=== PATIENT | female | born 1990 | race Caucasian/White ===

== ENCOUNTER 2018-03-04 17:48 | Inpatient (IN) | payer OTHER ==
[2018-03-04 18:40] VITALS: BMI 21.2
--- NOTE | 2018-03-04 20:46 | HP ---
Admission [facility] Chief Complaint: SEEKING REHAB SERVICES DUE TO RECENT INCREASE CRAVINGS FOR ALCOHOLISM. Allergies/Adverse Reactions: Allergies Allergy/AdvReac Type Severity Reaction Status Date / Time No Known Allergies Allergy Verified 03/04/18 20:27 History of Present Illness: 27 Y.O. FEMALE WITH A 5 YEAR HX/O ALCOHOLISM HERE FOR REHAB. CLIENT REPORTS FOR THE PAST THREE MONTHS HER CRAVINGS FOR ALCOHOL IS WORSENING. SHE REPORTS SHE HAS BEEN DRINKING ABOUT 1-2 GLASSES OF WINE OR MARTINI'S 2X WEEK AND AT TIME EVERY OTHER WEEK AND NOW CRAVING MORE DRINKS AND HAS A FEAR OF RELAPSING AGAIN. SHE WAS REFERRED BY HER OUTPATIENT PROGRAM [facility]ATS. SHE DENIES PREVIOUS INPATIENT TXMENT.UTOX + FOR BENZO'S REPORTS SHE USED 2 MG OF KLONOPINS 2 DAYS AGO BUT HAS NOT USED ANY 2 YEARS PREVIOUS TO THIS LAST EPISODE. SHE REPORTS A HX /O A SEIZURE 8 MONTHS AGO DUE TO ETOH WITHDRAWALS AND BLACK OUTS. REPORTS HX/O SI BUT PRESENTLY DENIES. DENIES A/V HALLUCINATIONS. REPORTS LONGEST SOBRIETY 5 MONTHS. DENIES LEGALS PMHX: ETOH RELATED SEIZURE, PSYCH: DEPRESSION, ANXIETY, Exam Limitations: No Limitations - Ebola screening Have you traveled outside of the country in the last 21 days: No Have you had contact with anyone from an Ebola affected area: No Have you been sick,other than usual withdrawal symptoms: No Do you have a fever: No - Review of Systems Constitutional: Chills, Loss of Appetite, Night Sweats, Changes in sleep EENT: reports: Other (CORRECTIVE LENSES) Respiratory: reports: No Symptoms reported Cardiac: reports: No Symptoms Reported GI: reports: Poor Appetite : reports: No Symptoms Reported Musculoskeletal: reports: No Symptoms Reported Integumentary: reports: No Symptoms Reported Neuro: reports: Headache, Seizure Endocrine: reports: No Symptoms Reported Hematology: reports: Easy Bruising Psychiatric: reports: Anxious, Depressed Other Systems: Reviewed and Negative Patient History - Patient Medical History Hx Anemia: No Hx Asthma: No Hx Chronic Obstructive Pulmonary Disease (COPD): No Hx Cancer: No Hx Cardiac Disorders: No Hx Congestive Heart Failure: No Hx Hypertension: No Hx Hypercholesterolemia: No Hx Pacemaker: No HX Cerebrovascular Accident: No Hx Seizures: Yes (ETOH RELATED LAST 8 MONTHS AGO) Hx Dementia: No Hx Diabetes: No Hx Gastrointestinal Disorders: No Hx Liver Disease: No Hx Genitourinary Disorders: No Hx Sexually Transmitted Disorders: No Hx Renal Disease (ESRD): No Hx Thyroid Disease: No Hx Human Immunodeficiency Virus (HIV): No Hx Hepatitis C: No Hx Depression: Yes Hx Suicide Attempt: Yes Hx Bipolar Disorder: No Hx Schizophrenia: No Other Medical History: ANXIETY - Patient Surgical History Past Surgical History: No - PPD History Previous Implant?: Yes Documented Results: Negative w/o proof Implanted On Prior R Admission?: No PPD to be Administered?: Yes - Reproductive History Patient is a Female of Child Bearing Age (11 -55 yrs old): Yes Last Menstrual Period: 02/15/18 LMP comment: IRREG Patient : No (NEG [facility] [place]) - Smoking Cessation Smoking history: Current every day smoker Aproximately how many cigarettes per day: 6 Cigars Per Day: 0 Hx Chewing Tobacco Use: No Initiated information on smoking cessation: Yes 'Breaking Loose' booklet given: 03/04/18 - Substance & Tx. History Hx Alcohol Use: Yes Hx Substance Use: Yes Substance Use Type: Alcohol, Tranquilizers (KLONOPIN) Hx Substance Use Treatment: Yes ([facility]) - Substances Abused Alcohol Route: Oral Frequency: 1-2 times per week Amount used: 1-2 GLASSES OF MARTINIS OR WINE Age of first use: 22 Date of Last Use: 03/03/18 (2 GLASSES) KLONOPIN Route: Oral Frequency: 1-3 times last 30 days Amount used: 2 MG Age of first use: 24 Date of Last Use: 03/02/18 Family Disease History - Family Disease History Family Disease History: Other: Father (ALCOHOLIC) Admission Physical Exam [facility] - Vital Signs Vital Signs: Vital Signs - 24 hr 03/04/18 18:39 Temperature 97.9 F Pulse Rate 71 Respiratory 18 Rate Blood Pressure 119/85 - Physical General Appearance: Yes: No Apparent Distress, Appropriately Dressed HEENTM: Yes: EOMI, Normal ENT Inspection, Normocephalic, Normal Voice, ESTHER, Pharynx Normal, Other (CORRECTIVE LENSES) Respiratory: Yes: Chest Non-Tender, Lungs Clear, Normal Breath Sounds, No Respiratory Distress, No Accessory Muscle Use Neck: Yes: No masses,lesions,Nodules, Supple, Trachea in good position Breast: Yes: Breast Exam Deferred Cardiology: Yes: Regular Rhythm, Regular Rate, S1, S2 Abdominal: Yes: Normal Bowel Sounds, Non Tender, Flat, Soft Genitourinary: Yes: Within Normal Limits Back: Yes: Normal Inspection Musculoskeletal: Yes: full range of Motion, Gait Steady Extremities: Yes: Normal Capillary Refill, Normal Inspection, Normal Range of Motion, Non-Tender Neurological: Yes: bobbin fixer II-XII NML intact, Fully Oriented, Alert, Motor Strength 5/5, Normal Mood/Affect Integumentary: Yes: Normal Color, Dry, Warm Lymphatic: Yes: Within Normal Limits - Diagnostic (1) Uncomplicated alcohol dependence Current Visit: Yes Status: Chronic (2) Nicotine dependence Current Visit: Yes Status: Chronic Qualifiers: Nicotine product type: cigarettes Substance use status: uncomplicated Qualified Code(s): F17.210 - Nicotine dependence, cigarettes, uncomplicated (3) Drug-induced mood disorder Current Visit: Yes Status: Suspected Cleared for Admission [facility] - Detox or Rehab Detox Regimen/Protocol: Not Applicable Claeared for Rehab Admission: Yes [facility] Breath Alcohol Content Breath Alcohol Content: 0 Urine Pregancy Test - Result Urine Test Results: Negative- NO Line Present Urine Drug Screen - Results Drug Screen Negative: No Urine Drug Screen Results: AMP-Amphetamines, BZO-Benzodiazepines Inpatient Rehab Admission - Initial Determination Are CD services needed?: Yes Not in need of hospitalization: Yes - Rehab Admission Criteria Previous failed treatment: Yes Poor recovery environment: Yes Comorbidities: Yes Lacks judgement: Yes Patient is meeting Inpatient Rehab admission criteria:: Yes
[2018-03-04] MEDS ORDERED: MAG HYDROX/AL HYDROX/SIMETH 30 ML UNIT-DOSE CUP PO PRN (21:10)
[2018-03-04] MEDS ORDERED: ACETAMINOPHEN 325 MG TABLET (FP) PO PRN (21:10)
[2018-03-04] MEDS ORDERED: IBUPROFEN 400 MG TABLET (FP) PO PRN (21:10)
[2018-03-04] MEDS ORDERED: MAGNESIUM CITRATE 300 ML BOTTLE PO PRN (21:10)
[2018-03-04] MEDS ORDERED: guaiFENesin/D-METHORPHAN HB 10 ML UNIT-DOSE CUPS PO PRN (21:10)
[2018-03-04] MEDS ORDERED: MENTHOL/PHENOL 1 EACH UD MM PRN (21:10)
[2018-03-04] MEDS ORDERED: P-EPHED 60MG/TRIPROLIDI 2.5MG TABLET PO PRN (21:10)
[2018-03-04] MEDS ORDERED: LOPERAMIDE HCL 2 MG CAPSULE PO PRN (21:10)
[2018-03-04] MEDS ORDERED: MAGNESIUM HYDROX 2400MG/30ML ORAL SUSPENSION 30 ML CUP PO PRN (21:10)
[2018-03-04] MEDS ORDERED: TUBERCULIN PPD 5 TU/0.1ML VIAL ID ONE (23:43)
[2018-03-04] MEDS: MELATONIN 5 MG TABLETS PO PRN (23:44)
[2018-03-04] MEDS: THIAMINE HCL 100 MG TABLET (FP) PO SCH (23:44)
[2018-03-05] MEDS: PRENATAL VITAMINS W/ FOLIC ACID TABLET (FP) PO SCH (10:01)
[2018-03-05] MEDS: NICOTINE 14 MG/24 HOURS TOPICAL PATCH TD SCH (10:01)
[2018-03-05] MEDS: hydrOXYzine PAMOATE 50 MG CAPSULE (FP) PO PRN (10:03)
[2018-03-05 10:13] LABS: HEMATOCRIT 36.4 % (32.4-45.2); HEMOGLOBIN 11.4 GM/dL (10.7-15.3); MCH 24.2 pg (25.7-33.7); MCHC 31.5 g/dl (32.0-36.0); MEAN PLT VOLUME 6.2 fl (7.5-11.1); PLATELET COUNT 511 K/MM3 (134-434); RBC 4.72 M/mm3 (3.60-5.2); RDW 18.4 % (11.6-15.6); WHITE BLOOD COUNT 7.5 K/mm3 (4.0-10.0)
[2018-03-05 10:57] LABS: CHLORIDE 101 mmol/L (98-107); SODIUM 141 mmol/L (136-145)
[2018-03-05] MEDS: VENLAFAXINE HCL 150 MG E.R. CAPSULE PO SCH (11:00)
[2018-03-05] MEDS: busPIRone HCL 10 MG TABLET (FP) PO SCH ×2 (11:00→21:33)
[2018-03-05] MEDS: NICOTINE POLACRILEX 2 MG GUM BC PRN (11:01)
[2018-03-05 11:17] LABS: ALBUMIN 3.8 g/dl (3.4-5.0); ALK PHOS 70 U/L (45-117); ANION GAP 7 (8-16); BILIRUBIN,TOTAL 0.4 mg/dL (0.2-1.0); BLOOD UREA NITROGEN 6 mg/dL (7-18); CALCIUM 9.5 mg/dL (8.5-10.1); CO2 33 mmol/L (21-32); GLUCOSE,RANDOM 68 mg/dL (74-106); SGOT/AST 23 U/L (15-37); SGPT/ALT 19 U/L (12-78); TOT PROT 7.2 g/dl (6.4-8.2)
[2018-03-05] MEDS: GABAPENTIN 300 MG CAPSULE (FP) PO SCH ×2 (13:11→21:32)
[2018-03-05 18:19] LABS: URINE APPEARANCE CLEAR; URINE BILIRUBIN NEGATIVE (<2.0 mg/dL); URINE COLOR YELLOW; URINE GLUCOSE (UA) NEGATIVE (NEGATIVE); URINE KETONE NEGATIVE (NEGATIVE); URINE LEUK ESTERASE NEGATIVE (NEGATIVE); URINE NITRITE NEGATIVE (NEGATIVE); URINE PROTEIN NEGATIVE (NEGATIVE); URINE UROBILINOGEN NEGATIVE mg/dL (0.2-1.0)
[2018-03-05] MEDS: THIAMINE HCL 100 MG TABLET (FP) PO SCH (21:32)
[2018-03-05] MEDS: traZODone HCL 100 MG TABLET (FP) PO SCH (21:34)
[2018-03-05] MEDS: MELATONIN 5 MG TABLETS PO PRN (21:35)
--- NOTE | 2018-03-05 23:41 | PN ---
S Progress Note Note: ASKED TO SEE PT BECAUSE SHE WAS FOUND IN ANOTHER CLIENT ROOM (K.B.). CLIENT DENIES ANY PHYSICAL CONTACT/ INJURY. REPORTS SHE WAS IN THE OTHER CLIENTS ROOM TALKING. HID BEHIND THE CURTAIN TO HIDE WHEN HER NAMED WAS CALLED BECAUSE SHE KNEW SHE WAS NOT SUPPOSE TO BE IN ANOTHER CLIENTS ROOM. CLIENT IS A/O X3 NAD OR INJURIES NOTED. CONT REHAB
[2018-03-06] MEDS: GABAPENTIN 300 MG CAPSULE (FP) PO SCH ×3 (06:43→21:27)
[2018-03-06] MEDS: VENLAFAXINE HCL 150 MG E.R. CAPSULE PO SCH (09:12)
[2018-03-06] MEDS: NICOTINE 14 MG/24 HOURS TOPICAL PATCH TD SCH (09:12)
[2018-03-06] MEDS: busPIRone HCL 10 MG TABLET (FP) PO SCH ×2 (09:12→21:26)
[2018-03-06] MEDS: PRENATAL VITAMINS W/ FOLIC ACID TABLET (FP) PO SCH (09:12)
[2018-03-06] MEDS: THIAMINE HCL 100 MG TABLET (FP) PO SCH (21:26)
[2018-03-06] MEDS: traZODone HCL 100 MG TABLET (FP) PO SCH (21:27)
[2018-03-06] MEDS: MELATONIN 5 MG TABLETS PO PRN (21:27)
[2018-03-06] MEDS: hydrOXYzine PAMOATE 50 MG CAPSULE (FP) PO PRN (21:28)
--- NOTE | 2018-03-06 22:44 | EKG ---
Test Reason : Blood Pressure : / mmHG Vent. Rate : 054 BPM Atrial Rate : 054 BPM P-R Int : 138 ms QRS Dur : 100 ms QT Int : 446 ms P-R-T Axes : 015 062 068 degrees QTc Int : 422 ms SINUS BRADYCARDIA OTHERWISE NORMAL ECG NO PREVIOUS ECGS AVAILABLE Confirmed by AMPARO MEREDITH MD ([id number]) on 03/06/2018 10:44:10 PM Referred By: CLAY Cates Confirmed By:AMPARO MEREDITH MD
[2018-03-07] MEDS: GABAPENTIN 300 MG CAPSULE (FP) PO SCH ×3 (06:12→21:47)
--- NOTE | 2018-03-07 08:32 | PN ---
[facility] Progress Note Note: Call from [facility] regarding medications:Gabapentin 600 mg po tid,Buspar 20 mg po bid,effexor XR 150 mg po daily and Trazodone 100 mg po hs.. Order was placed
[2018-03-07] MEDS: PRENATAL VITAMINS W/ FOLIC ACID TABLET (FP) PO SCH (10:16)
[2018-03-07] MEDS: busPIRone HCL 10 MG TABLET (FP) PO SCH ×2 (10:16→21:48)
[2018-03-07] MEDS: NICOTINE 14 MG/24 HOURS TOPICAL PATCH TD SCH (10:16)
[2018-03-07] MEDS: VENLAFAXINE HCL 150 MG E.R. CAPSULE PO SCH (10:16)
--- NOTE | 2018-03-07 15:15 | HP ---
Psychiatrist Admission - Data Date of interview: 03/07/18 Admission source: [facility] Identifying data: This is the first admission to [address] [place] [address] rehabilitation for this 27 years old marroccanian single childless,resides with father,unemployed. Medical History: H/O alcohol related seizures. Psychiatric History: patient reports first contact with psychiatrist was at 23 years old to address anxiety,depressed mood,drinking problems.She was seen by psychiatrist in provate office and placed on Clonazepine and some antidepressnt, psychoatherpay.Patient sees psychiatrist on and off .She reports 2 psychiatric hospializations to [facility] to address depressed mood,drinking ,expressing suicidal ideas.Currently she is under my care at [facility].Patient will continue current mediactions as per plan. Physical/Sexual Abuse/Trauma History: denies Vital Signs: Vital Signs - 24 hr 03/07/18 03/07/18 03/07/18 00:30 03:30 07:20 Temperature 97.4 F L Pulse Rate 79 Respiratory 16 16 18 Rate Blood Pressure 94/60 Allergies/Adverse Reactions: Allergies Allergy/AdvReac Type Severity Reaction Status Date / Time No Known Allergies Allergy Verified 03/04/18 20:27 Date of last physical exam: 03/04/18 Concur with the findings of this exam: Yes - Substance Abuse/Tx History Hx Alcohol Use: Yes (reports started drinking since 22 yo,vodka ) Hx Substance Use: Yes (patient was on Lorazeram,Clonopin prescribed by PCP) Substance Use Type: Alcohol, Tranquilizers Hx Substance Use Treatment: Yes (this is her first inpatient rehabilitation) Mental Status Exam - Mental Status Exam Alert and Oriented to: Time, Place, Person Cognitive Function: Grossly Intact Patient Appearance: Well Groomed Mood: Anxious, Irritable Affect: Mood Congruent, Labile Patient Behavior: Cooperative Speech Pattern: Clear Voice Loudness: Normal Thought Process: Goal Oriented Thought Disorder: Not Present Hallucinations: Denies Suicidal Ideation: Denies Homicidal Ideation: Denies Insight/Judgement: Fair Sleep: Fair Appetite: Good Muscle strength/Tone: Normal Gait/Station: Normal Psychiatric Findings - Problem List ([place] 1, 2,3) (1) Nicotine dependence Current Visit: Yes Status: Chronic Qualifiers: Nicotine product type: cigarettes Substance use status: uncomplicated Qualified Code(s): F17.210 - Nicotine dependence, cigarettes, uncomplicated (2) Drug-induced mood disorder Current Visit: Yes Status: Chronic (3) Alcohol dependence Current Visit: Yes Status: Chronic - Initial Treatment Plan Initial Treatment Plan: Neurontin 600 mg po tid,Buspar 20 mg po bid,TRazodone 100 mg po hs,Effexor XR 150 po am.
[2018-03-07] MEDS: traZODone HCL 100 MG TABLET (FP) PO SCH (21:47)
[2018-03-07] MEDS: MELATONIN 5 MG TABLETS PO PRN (21:47)
[2018-03-07] MEDS: THIAMINE HCL 100 MG TABLET (FP) PO SCH (21:47)
[2018-03-08] MEDS: GABAPENTIN 300 MG CAPSULE (FP) PO SCH ×3 (06:34→21:37)
[2018-03-08] MEDS: hydrOXYzine PAMOATE 50 MG CAPSULE (FP) PO PRN ×2 (06:35→19:08)
[2018-03-08] MEDS: busPIRone HCL 10 MG TABLET (FP) PO SCH ×2 (10:29→21:37)
[2018-03-08] MEDS: NICOTINE 14 MG/24 HOURS TOPICAL PATCH TD SCH (10:30)
[2018-03-08] MEDS: VENLAFAXINE HCL 150 MG E.R. CAPSULE PO SCH (10:30)
[2018-03-08] MEDS: PRENATAL VITAMINS W/ FOLIC ACID TABLET (FP) PO SCH (10:30)
--- NOTE | 2018-03-08 13:54 | PN ---
[facility] Progress Note Note: Vital Signs Temperature 98.1 F 03/08/18 07:15 Pulse Rate 71 03/08/18 07:15 Respiratory Rate 18 03/08/18 07:15 Blood Pressure 102/68 03/08/18 07:15 O2 Sat by Pulse Oximetry (%) Laboratory Last Values WBC 7.5 K/mm3 (4.0-10.0) 03/05/18 07:30 RBC 4.72 M/mm3 (3.60-5.2) 03/05/18 07:30 Hgb 11.4 GM/dL (10.7-15.3) 03/05/18 07:30 Hct 36.4 % (32.4-45.2) 03/05/18 07:30 MCV 77.0 fl (80-96) L 03/05/18 07:30 MCH 24.2 pg (25.7-33.7) L 03/05/18 07:30 MCHC 31.5 g/dl (32.0-36.0) L 03/05/18 07:30 RDW 18.4 % (11.6-15.6) H 03/05/18 07:30 Plt Count 511 K/MM3 (134-434) H 03/05/18 07:30 MPV 6.2 fl (7.5-11.1) L 03/05/18 07:30 Sodium 141 mmol/L (136-145) 03/05/18 07:30 Potassium 4.0 mmol/L (3.5-5.1) 03/05/18 07:30 Chloride 101 mmol/L (98-107) 03/05/18 07:30 Carbon Dioxide 33 mmol/L (21-32) H 03/05/18 07:30 Anion Gap 7 (8-16) L 03/05/18 07:30 BUN 6 mg/dL (7-18) L 03/05/18 07:30 Creatinine 1.0 mg/dL (0.55-1.02) 03/05/18 07:30 Creat Clearance w eGFR > 60 (>60) 03/05/18 07:30 Random Glucose 68 mg/dL (74-106) L 03/05/18 07:30 Calcium 9.5 mg/dL (8.5-10.1) 03/05/18 07:30 Total Bilirubin 0.4 mg/dL (0.2-1.0) 03/05/18 07:30 AST 23 U/L (15-37) 03/05/18 07:30 ALT 19 U/L (12-78) 03/05/18 07:30 Alkaline Phosphatase 70 U/L (45-117) 03/05/18 07:30 Total Protein 7.2 g/dl (6.4-8.2) 03/05/18 07:30 Albumin 3.8 g/dl (3.4-5.0) 03/05/18 07:30 Urine Color Yellow 03/05/18 17:00 Urine Appearance Clear 03/05/18 17:00 Urine pH 6.0 (5.0-8.0) 03/05/18 17:00 Ur Specific [place] 1.014 (1.001-1.035) 03/05/18 17:00 Urine Protein Negative (NEGATIVE) 03/05/18 17:00 Urine Glucose (UA) Negative (NEGATIVE) 03/05/18 17:00 Urine Ketones Negative (NEGATIVE) 03/05/18 17:00 Urine Blood Negative (NEGATIVE) 03/05/18 17:00 Urine Nitrite Negative (NEGATIVE) 03/05/18 17:00 Urine Bilirubin Negative (<2.0 mg/dL) 03/05/18 17:00 Urine Urobilinogen Negative mg/dL (0.2-1.0) 03/05/18 17:00 Ur Leukocyte Esterase Negative (NEGATIVE) 03/05/18 17:00 RPR Titer Nonreactive (NONREACTIVE) 03/05/18 07:30 repeat CBC continue to monitor
[2018-03-08] MEDS: traZODone HCL 100 MG TABLET (FP) PO SCH (21:37)
[2018-03-08] MEDS: THIAMINE HCL 100 MG TABLET (FP) PO SCH (21:37)
[2018-03-08] MEDS: MELATONIN 5 MG TABLETS PO PRN (22:41)
[2018-03-09] MEDS: GABAPENTIN 300 MG CAPSULE (FP) PO SCH ×3 (06:20→21:53)
[2018-03-09] MEDS: hydrOXYzine PAMOATE 50 MG CAPSULE (FP) PO PRN ×2 (06:21→13:32)
[2018-03-09] MEDS: PRENATAL VITAMINS W/ FOLIC ACID TABLET (FP) PO SCH (10:33)
[2018-03-09] MEDS: busPIRone HCL 10 MG TABLET (FP) PO SCH ×2 (10:33→21:53)
[2018-03-09] MEDS: NICOTINE 14 MG/24 HOURS TOPICAL PATCH TD SCH (10:33)
[2018-03-09] MEDS: VENLAFAXINE HCL 150 MG E.R. CAPSULE PO SCH (10:33)
[2018-03-09 15:30] LABS: BASO % 3.5 % (0-2.0); EOS % 2.3 % (0-4.5); HEMATOCRIT 35.5 % (32.4-45.2); HEMOGLOBIN 11.3 GM/dL (10.7-15.3); LYMPH % 35.4 % (8-40); MCH 24.6 pg (25.7-33.7); MCHC 31.8 g/dl (32.0-36.0); MEAN CELL VOLUME 77.5 fl (80-96); MEAN PLT VOLUME 6.5 fl (7.5-11.1); MONO % 5.5 % (3.8-10.2); NEUT % 53.3 % (42.8-82.8); PLATELET COUNT 467 K/MM3 (134-434); RBC 4.58 M/mm3 (3.60-5.2); RDW 18.4 % (11.6-15.6); WHITE BLOOD COUNT 6.6 K/mm3 (4.0-10.0)
[2018-03-09] MEDS: THIAMINE HCL 100 MG TABLET (FP) PO SCH (21:53)
[2018-03-09] MEDS: MELATONIN 5 MG TABLETS PO PRN (21:54)
[2018-03-09] MEDS: traZODone HCL 100 MG TABLET (FP) PO SCH (21:55)
[2018-03-10] MEDS: hydrOXYzine PAMOATE 50 MG CAPSULE (FP) PO PRN ×3 (06:19→21:34)
[2018-03-10] MEDS: GABAPENTIN 300 MG CAPSULE (FP) PO SCH ×3 (06:19→21:34)
[2018-03-10] MEDS: NICOTINE 14 MG/24 HOURS TOPICAL PATCH TD SCH (10:08)
[2018-03-10] MEDS: busPIRone HCL 10 MG TABLET (FP) PO SCH ×2 (10:09→21:34)
[2018-03-10] MEDS: VENLAFAXINE HCL 150 MG E.R. CAPSULE PO SCH (10:09)
[2018-03-10] MEDS: PRENATAL VITAMINS W/ FOLIC ACID TABLET (FP) PO SCH (10:09)
[2018-03-10] MEDS: MELATONIN 5 MG TABLETS PO PRN (21:34)
[2018-03-10] MEDS: THIAMINE HCL 100 MG TABLET (FP) PO SCH (21:34)
[2018-03-10] MEDS: traZODone HCL 100 MG TABLET (FP) PO SCH (21:35)
[2018-03-11] MEDS: GABAPENTIN 300 MG CAPSULE (FP) PO SCH ×3 (06:22→21:37)
[2018-03-11] MEDS: hydrOXYzine PAMOATE 50 MG CAPSULE (FP) PO PRN ×2 (06:22→19:16)
[2018-03-11] MEDS: VENLAFAXINE HCL 150 MG E.R. CAPSULE PO SCH (10:05)
[2018-03-11] MEDS: busPIRone HCL 10 MG TABLET (FP) PO SCH ×2 (10:05→21:37)
[2018-03-11] MEDS: PRENATAL VITAMINS W/ FOLIC ACID TABLET (FP) PO SCH (10:05)
[2018-03-11] MEDS: NICOTINE 14 MG/24 HOURS TOPICAL PATCH TD SCH (10:06)
[2018-03-11] MEDS: THIAMINE HCL 100 MG TABLET (FP) PO SCH (21:37)
[2018-03-11] MEDS: traZODone HCL 100 MG TABLET (FP) PO SCH (21:37)
[2018-03-11] MEDS: MELATONIN 5 MG TABLETS PO PRN (21:38)
[2018-03-12] MEDS: GABAPENTIN 300 MG CAPSULE (FP) PO SCH ×3 (06:29→21:24)
[2018-03-12] MEDS: hydrOXYzine PAMOATE 50 MG CAPSULE (FP) PO PRN ×3 (06:31→21:24)
[2018-03-12] MEDS: busPIRone HCL 10 MG TABLET (FP) PO SCH ×2 (09:55→21:24)
[2018-03-12] MEDS: VENLAFAXINE HCL 150 MG E.R. CAPSULE PO SCH (09:55)
[2018-03-12] MEDS: NICOTINE 14 MG/24 HOURS TOPICAL PATCH TD SCH (09:55)
[2018-03-12] MEDS: PRENATAL VITAMINS W/ FOLIC ACID TABLET (FP) PO SCH (09:55)
[2018-03-12] MEDS: NICOTINE POLACRILEX 2 MG GUM BC PRN (09:57)
[2018-03-12] MEDS: THIAMINE HCL 100 MG TABLET (FP) PO SCH (21:24)
[2018-03-12] MEDS: MELATONIN 5 MG TABLETS PO PRN (21:25)
[2018-03-12] MEDS: traZODone HCL 100 MG TABLET (FP) PO SCH (21:25)
[2018-03-13] MEDS: GABAPENTIN 300 MG CAPSULE (FP) PO SCH ×3 (06:39→21:31)
[2018-03-13] MEDS: hydrOXYzine PAMOATE 50 MG CAPSULE (FP) PO PRN ×3 (06:40→21:31)
[2018-03-13] MEDS: NICOTINE 14 MG/24 HOURS TOPICAL PATCH TD SCH (09:32)
[2018-03-13] MEDS: busPIRone HCL 10 MG TABLET (FP) PO SCH ×2 (09:32→21:32)
[2018-03-13] MEDS: PRENATAL VITAMINS W/ FOLIC ACID TABLET (FP) PO SCH (09:32)
[2018-03-13] MEDS: VENLAFAXINE HCL 150 MG E.R. CAPSULE PO SCH (09:32)
[2018-03-13] MEDS: THIAMINE HCL 100 MG TABLET (FP) PO SCH (21:31)
[2018-03-13] MEDS: traZODone HCL 100 MG TABLET (FP) PO SCH (21:32)
[2018-03-13] MEDS: MELATONIN 5 MG TABLETS PO PRN (21:33)
[2018-03-14] MEDS: GABAPENTIN 300 MG CAPSULE (FP) PO SCH ×2 (06:12→13:12)
[2018-03-14] MEDS: hydrOXYzine PAMOATE 50 MG CAPSULE (FP) PO PRN ×3 (06:13→21:50)
[2018-03-14] MEDS: NICOTINE POLACRILEX 2 MG GUM BC PRN ×3 (07:29→15:42)
[2018-03-14] MEDS: PRENATAL VITAMINS W/ FOLIC ACID TABLET (FP) PO SCH (10:16)
[2018-03-14] MEDS: NICOTINE 14 MG/24 HOURS TOPICAL PATCH TD SCH (10:16)
[2018-03-14] MEDS: busPIRone HCL 10 MG TABLET (FP) PO SCH ×2 (10:16→21:50)
[2018-03-14] MEDS: VENLAFAXINE HCL 150 MG E.R. CAPSULE PO SCH (10:16)
--- NOTE | 2018-03-14 15:19 | PN ---
Psychiatric Progress Note Vital Signs: Vital Signs Period Temp Pulse Resp BP Sys/Jain Pulse Ox Last 24 Hr 97.8 F 61 16-16 102/63 Date of Session: 03/14/18 Chief Complaint:: Patient reports still having mood instability. HPI: patient addressed Alcohol dependence comorbid with Alcohol induced mod disorder. ROS: Unremarkable Current Medications: Active Medications Generic Name Dose Route Start Last Admin Trade Name Freq PRN Reason Stop Dose Admin Acetaminophen 650 mg 03/04/18 21:10 Tylenol - PO Q4H PRN FEVER Al Hydroxide/Mg Hydroxide 30 ml 03/04/18 21:10 Mylanta Oral Suspension - PO Q6H PRN DYSPEPSIA Buspirone HCl 20 mg 03/05/18 10:00 03/14/18 10:16 Buspar - PO 20 mg BID MANNIE Administration Eucalyptus/Menthol/Phenol/Sorbitol 1 each 03/04/18 21:10 Cepastat Lozenge - MM Q4H PRN SORE THROAT Gabapentin 800 mg 03/14/18 15:14 Neurontin - PO TID MANNIE Guaifenesin 10 ml 03/04/18 21:10 Robitussin Dm - PO Q6H PRN COUGH Hydroxyzine Pamoate 50 mg 03/04/18 21:10 03/14/18 10:17 Vistaril - PO 50 mg Q4H PRN Administration AGITATION Ibuprofen 400 mg 03/04/18 21:10 Motrin - PO Q6H PRN Pain level 4-6 Loperamide HCl 4 mg 03/04/18 21:10 Imodium - PO Q6H PRN DIARRHEA Magnesium Citrate 300 ml 03/04/18 21:10 Citroma - PO Q48H PRN CONSTIPATION Magnesium Hydroxide 30 ml 03/04/18 21:10 Milk Of Magnesia - PO DAILY PRN CONSTIPATION Melatonin 5 mg 03/04/18 22:00 03/13/18 21:33 Melatonin PO 5 mg HS PRN Administration INSOMNIA Nicotine 14 mg 03/05/18 10:00 03/14/18 10:16 Nicoderm Patch - TD 14 mg DAILY MANNIE Administration Nicotine Polacrilex 2 mg 03/04/18 21:10 03/14/18 10:19 Nicorette Gum - BC 2 mg Q2H PRN Administration NICOTINE REPLACEMENT RX Multivit/Folic Acid/Iron 1 tab 03/05/18 10:00 03/14/18 10:16 Vitamins (Sjr) - PO 1 tab DAILY MANNIE Administration Pseudoephedrine/Triprolidine 1 combo 03/04/18 21:10 Actifed - PO TID PRN NASAL CONGESTION Thiamine HCl 100 mg 03/04/18 22:00 03/13/18 21:31 Vitamin B1 - PO 100 mg HS MANNIE Administration Trazodone HCl 150 mg 03/09/18 22:00 03/13/18 21:32 Desyrel - PO 150 mg HS MANNIE Administration Venlafaxine HCl 150 mg 03/05/18 10:00 03/14/18 10:16 Effexor Xr - PO 150 mg DAILY MANNIE Administration Current Side Effect: No Lab tests ordered: No Lab tests reviewed: Yes Provider note:: Chart was revuewed,patient was seen in my office .She addressed ongoing sleeping difficulties,mood instability.Properties of Neuronin has been discussed including side effects,bebfits abd dose adjustment. Neurontin 600 mg po tid choco be adjusted to 800 mg po tid. Supportive therapy provided. Total face to face time:: 25 Mental Status Exam - Mental Status Exam Alert and Oriented to: Time, Place, Person Cognitive Function: Grossly Intact Patient Appearance: Well Groomed Mood: Anxious Affect: Mood Congruent, Labile Patient Behavior: Cooperative Speech Pattern: Clear Voice Loudness: Normal Thought Process: Goal Oriented Thought Disorder: Not Present Hallucinations: Denies Suicidal Ideation: Denies Homicidal Ideation: Denies Insight/Judgement: Fair Sleep: Fair Appetite: Good Muscle strength/Tone: Normal Gait/Station: Normal Psychiatric Treatment Plan - Problem List (1) Nicotine dependence Current Visit: Yes Qualifiers: Nicotine product type: cigarettes Substance use status: uncomplicated Qualified Code(s): F17.210 - Nicotine dependence, cigarettes, uncomplicated (2) Drug-induced mood disorder Current Visit: Yes (3) Alcohol dependence Current Visit: Yes
[2018-03-14] MEDS: GABAPENTIN 400 MG CAPSULE (FP) PO SCH (21:49)
[2018-03-14] MEDS: THIAMINE HCL 100 MG TABLET (FP) PO SCH (21:49)
[2018-03-14] MEDS: traZODone HCL 100 MG TABLET (FP) PO SCH (21:50)
[2018-03-14] MEDS: MELATONIN 5 MG TABLETS PO PRN (21:51)
[2018-03-14] MEDS ORDERED: TUBERCULIN PPD 5 TU/0.1ML VIAL ID ONE (22:54)
[2018-03-15] MEDS: hydrOXYzine PAMOATE 50 MG CAPSULE (FP) PO PRN ×2 (06:05→21:40)
[2018-03-15] MEDS: GABAPENTIN 400 MG CAPSULE (FP) PO SCH ×3 (06:05→21:39)
[2018-03-15] MEDS: busPIRone HCL 10 MG TABLET (FP) PO SCH ×2 (10:02→21:39)
[2018-03-15] MEDS: VENLAFAXINE HCL 150 MG E.R. CAPSULE PO SCH (10:03)
[2018-03-15] MEDS: PRENATAL VITAMINS W/ FOLIC ACID TABLET (FP) PO SCH (10:03)
[2018-03-15] MEDS: NICOTINE 14 MG/24 HOURS TOPICAL PATCH TD SCH (10:03)
[2018-03-15] MEDS: NICOTINE POLACRILEX 2 MG GUM BC PRN (13:32)
[2018-03-15] MEDS: traZODone HCL 100 MG TABLET (FP) PO SCH (21:39)
[2018-03-15] MEDS: THIAMINE HCL 100 MG TABLET (FP) PO SCH (21:39)
[2018-03-15] MEDS: MELATONIN 5 MG TABLETS PO PRN (21:40)
[2018-03-16] MEDS: GABAPENTIN 400 MG CAPSULE (FP) PO SCH ×3 (06:41→21:31)
[2018-03-16] MEDS: hydrOXYzine PAMOATE 50 MG CAPSULE (FP) PO PRN ×2 (06:42→21:31)
[2018-03-16] MEDS: busPIRone HCL 10 MG TABLET (FP) PO SCH ×2 (10:04→21:31)
[2018-03-16] MEDS: NICOTINE 14 MG/24 HOURS TOPICAL PATCH TD SCH (10:04)
[2018-03-16] MEDS: PRENATAL VITAMINS W/ FOLIC ACID TABLET (FP) PO SCH (10:04)
[2018-03-16] MEDS: VENLAFAXINE HCL 150 MG E.R. CAPSULE PO SCH (10:04)
[2018-03-16] MEDS: NICOTINE POLACRILEX 2 MG GUM BC PRN (10:05)
[2018-03-16] MEDS: THIAMINE HCL 100 MG TABLET (FP) PO SCH (21:30)
[2018-03-16] MEDS: traZODone HCL 100 MG TABLET (FP) PO SCH (21:30)
[2018-03-16] MEDS: MELATONIN 5 MG TABLETS PO PRN (21:31)
[2018-03-17] MEDS ORDERED: PT OWN MED DRAWER 7, Y5N ONE (08:41)
[2018-03-17] MEDS: GABAPENTIN 400 MG CAPSULE (FP) PO SCH ×3 (09:42→21:28)
[2018-03-17] MEDS: busPIRone HCL 10 MG TABLET (FP) PO SCH ×2 (10:30→21:28)
[2018-03-17] MEDS: PRENATAL VITAMINS W/ FOLIC ACID TABLET (FP) PO SCH (10:31)
[2018-03-17] MEDS: NICOTINE POLACRILEX 2 MG GUM BC PRN (10:31)
[2018-03-17] MEDS: NICOTINE 14 MG/24 HOURS TOPICAL PATCH TD SCH (10:31)
[2018-03-17] MEDS: VENLAFAXINE HCL 150 MG E.R. CAPSULE PO SCH (10:31)
[2018-03-17] MEDS: hydrOXYzine PAMOATE 50 MG CAPSULE (FP) PO PRN (21:28)
[2018-03-17] MEDS: THIAMINE HCL 100 MG TABLET (FP) PO SCH (21:28)
[2018-03-17] MEDS: traZODone HCL 100 MG TABLET (FP) PO SCH (21:29)
[2018-03-17] MEDS: MELATONIN 5 MG TABLETS PO PRN (21:29)
[2018-03-18] MEDS: hydrOXYzine PAMOATE 50 MG CAPSULE (FP) PO PRN ×2 (06:14→13:52)
[2018-03-18] MEDS: GABAPENTIN 400 MG CAPSULE (FP) PO SCH ×3 (06:14→21:41)
[2018-03-18] MEDS: NICOTINE POLACRILEX 2 MG GUM BC PRN ×2 (07:37→13:53)
[2018-03-18] MEDS: busPIRone HCL 10 MG TABLET (FP) PO SCH ×2 (10:32→21:41)
[2018-03-18] MEDS: NICOTINE 14 MG/24 HOURS TOPICAL PATCH TD SCH (10:33)
[2018-03-18] MEDS: VENLAFAXINE HCL 150 MG E.R. CAPSULE PO SCH (10:33)
[2018-03-18] MEDS: PRENATAL VITAMINS W/ FOLIC ACID TABLET (FP) PO SCH (10:34)
[2018-03-18] MEDS: THIAMINE HCL 100 MG TABLET (FP) PO SCH (21:41)
[2018-03-18] MEDS: MELATONIN 5 MG TABLETS PO PRN (21:42)
[2018-03-18] MEDS: traZODone HCL 100 MG TABLET (FP) PO SCH (21:42)
[2018-03-19] MEDS: GABAPENTIN 400 MG CAPSULE (FP) PO SCH ×3 (06:41→21:29)
[2018-03-19] MEDS: hydrOXYzine PAMOATE 50 MG CAPSULE (FP) PO PRN (06:42)
[2018-03-19] MEDS: VENLAFAXINE HCL 150 MG E.R. CAPSULE PO SCH (09:50)
[2018-03-19] MEDS: PRENATAL VITAMINS W/ FOLIC ACID TABLET (FP) PO SCH (09:50)
[2018-03-19] MEDS: NICOTINE 14 MG/24 HOURS TOPICAL PATCH TD SCH (09:50)
[2018-03-19] MEDS: busPIRone HCL 10 MG TABLET (FP) PO SCH ×2 (09:50→21:29)
[2018-03-19] MEDS: NICOTINE POLACRILEX 2 MG GUM BC PRN ×2 (09:51→21:32)
[2018-03-19] MEDS: traZODone HCL 100 MG TABLET (FP) PO SCH (21:29)
[2018-03-19] MEDS: THIAMINE HCL 100 MG TABLET (FP) PO SCH (21:30)
[2018-03-19] MEDS: MELATONIN 5 MG TABLETS PO PRN (21:30)
[2018-03-20] MEDS: GABAPENTIN 400 MG CAPSULE (FP) PO SCH ×3 (06:35→21:35)
[2018-03-20] MEDS: hydrOXYzine PAMOATE 50 MG CAPSULE (FP) PO PRN (06:35)
[2018-03-20] MEDS: busPIRone HCL 10 MG TABLET (FP) PO SCH ×2 (10:01→21:35)
[2018-03-20] MEDS: VENLAFAXINE HCL 150 MG E.R. CAPSULE PO SCH (10:01)
[2018-03-20] MEDS: NICOTINE 14 MG/24 HOURS TOPICAL PATCH TD SCH (10:01)
[2018-03-20] MEDS: NICOTINE POLACRILEX 2 MG GUM BC PRN ×2 (10:02→14:41)
[2018-03-20] MEDS: PRENATAL VITAMINS W/ FOLIC ACID TABLET (FP) PO SCH (10:02)
[2018-03-20] MEDS: traZODone HCL 100 MG TABLET (FP) PO SCH (21:34)
[2018-03-20] MEDS: THIAMINE HCL 100 MG TABLET (FP) PO SCH (21:34)
[2018-03-20] MEDS: MELATONIN 5 MG TABLETS PO PRN (21:36)
[2018-03-20] MEDS ORDERED: PT OWN MED DRAWER 7, Y5N ONE (22:05)
[2018-03-21] MEDS: GABAPENTIN 400 MG CAPSULE (FP) PO SCH ×3 (06:11→21:28)
[2018-03-21] MEDS: hydrOXYzine PAMOATE 50 MG CAPSULE (FP) PO PRN ×3 (06:11→21:28)
[2018-03-21] MEDS: NICOTINE POLACRILEX 2 MG GUM BC PRN ×3 (06:14→21:29)
[2018-03-21] MEDS: VENLAFAXINE HCL 150 MG E.R. CAPSULE PO SCH (10:09)
[2018-03-21] MEDS: NICOTINE 14 MG/24 HOURS TOPICAL PATCH TD SCH (10:09)
[2018-03-21] MEDS: busPIRone HCL 10 MG TABLET (FP) PO SCH ×2 (10:09→21:28)
[2018-03-21] MEDS: PRENATAL VITAMINS W/ FOLIC ACID TABLET (FP) PO SCH (10:09)
[2018-03-21] MEDS: THIAMINE HCL 100 MG TABLET (FP) PO SCH (21:28)
[2018-03-21] MEDS: traZODone HCL 100 MG TABLET (FP) PO SCH (21:28)
[2018-03-21] MEDS: MELATONIN 5 MG TABLETS PO PRN (21:29)
[2018-03-22] MEDS: GABAPENTIN 400 MG CAPSULE (FP) PO SCH ×3 (06:30→21:28)
[2018-03-22] MEDS: hydrOXYzine PAMOATE 50 MG CAPSULE (FP) PO PRN (06:31)
[2018-03-22] MEDS: busPIRone HCL 10 MG TABLET (FP) PO SCH ×2 (09:42→21:29)
[2018-03-22] MEDS: NICOTINE 14 MG/24 HOURS TOPICAL PATCH TD SCH (09:43)
[2018-03-22] MEDS: VENLAFAXINE HCL 150 MG E.R. CAPSULE PO SCH (09:43)
[2018-03-22] MEDS: NICOTINE POLACRILEX 2 MG GUM BC PRN ×2 (09:43→13:19)
[2018-03-22] MEDS: PRENATAL VITAMINS W/ FOLIC ACID TABLET (FP) PO SCH (09:43)
[2018-03-22] MEDS: THIAMINE HCL 100 MG TABLET (FP) PO SCH (21:28)
[2018-03-22] MEDS: MELATONIN 5 MG TABLETS PO PRN (21:29)
[2018-03-22] MEDS: traZODone HCL 100 MG TABLET (FP) PO SCH (21:30)
[2018-03-23] MEDS: GABAPENTIN 400 MG CAPSULE (FP) PO SCH ×3 (06:24→21:28)
[2018-03-23] MEDS: VENLAFAXINE HCL 150 MG E.R. CAPSULE PO SCH (10:02)
[2018-03-23] MEDS: busPIRone HCL 10 MG TABLET (FP) PO SCH ×2 (10:02→21:28)
[2018-03-23] MEDS: PRENATAL VITAMINS W/ FOLIC ACID TABLET (FP) PO SCH (10:03)
[2018-03-23] MEDS: NICOTINE 14 MG/24 HOURS TOPICAL PATCH TD SCH (10:03)
[2018-03-23] MEDS: hydrOXYzine PAMOATE 50 MG CAPSULE (FP) PO PRN (21:28)
[2018-03-23] MEDS: traZODone HCL 100 MG TABLET (FP) PO SCH (21:28)
[2018-03-23] MEDS: MELATONIN 5 MG TABLETS PO PRN (21:28)
[2018-03-23] MEDS: THIAMINE HCL 100 MG TABLET (FP) PO SCH (21:28)
[2018-03-24] MEDS: GABAPENTIN 400 MG CAPSULE (FP) PO SCH ×3 (06:33→21:27)
[2018-03-24] MEDS: busPIRone HCL 10 MG TABLET (FP) PO SCH ×2 (09:49→21:27)
[2018-03-24] MEDS: NICOTINE 14 MG/24 HOURS TOPICAL PATCH TD SCH (09:50)
[2018-03-24] MEDS: VENLAFAXINE HCL 150 MG E.R. CAPSULE PO SCH (09:50)
[2018-03-24] MEDS: PRENATAL VITAMINS W/ FOLIC ACID TABLET (FP) PO SCH (09:50)
[2018-03-24] MEDS: NICOTINE POLACRILEX 2 MG GUM BC PRN (09:51)
[2018-03-24] MEDS: THIAMINE HCL 100 MG TABLET (FP) PO SCH (21:27)
[2018-03-24] MEDS: MELATONIN 5 MG TABLETS PO PRN (21:27)
[2018-03-24] MEDS: traZODone HCL 100 MG TABLET (FP) PO SCH (21:27)
[2018-03-24] MEDS: hydrOXYzine PAMOATE 50 MG CAPSULE (FP) PO PRN (21:28)
[2018-03-25] MEDS: GABAPENTIN 400 MG CAPSULE (FP) PO SCH (06:21)
[2018-03-25 06:40] VITALS: BP 93/60; PULSE 76; TEMP 97.9
--- NOTE | 2018-03-25 08:39 | PN ---
Psychiatric Progress Note Vital Signs: Vital Signs Period Temp Pulse Resp BP Sys/Jain Pulse Ox Last 24 Hr 97.9 F 76 16-18 93/60 Date of Session: 03/25/18 Chief Complaint:: Discharge visit HPI: Patient addressed Alcohol dependence comorbid with Alcohol induced mood disorder. Current Medications: Active Medications Generic Name Dose Route Start Last Admin Trade Name Freq PRN Reason Stop Dose Admin Acetaminophen 650 mg 03/04/18 21:10 Tylenol - PO Q4H PRN FEVER Al Hydroxide/Mg Hydroxide 30 ml 03/04/18 21:10 Mylanta Oral Suspension - PO Q6H PRN DYSPEPSIA Buspirone HCl 20 mg 03/05/18 10:00 03/24/18 21:27 Buspar - PO 20 mg BID MANNIE Administration Eucalyptus/Menthol/Phenol/Sorbitol 1 each 03/04/18 21:10 Cepastat Lozenge - MM Q4H PRN SORE THROAT Gabapentin 800 mg 03/14/18 22:00 03/25/18 06:21 Neurontin - PO 800 mg TID MANNIE Administration Guaifenesin 10 ml 03/04/18 21:10 Robitussin Dm - PO Q6H PRN COUGH Hydroxyzine Pamoate 50 mg 03/04/18 21:10 03/24/18 21:28 Vistaril - PO 50 mg Q4H PRN Administration AGITATION Ibuprofen 400 mg 03/04/18 21:10 03/21/18 15:46 Motrin - PO 400 mg Q6H PRN Administration Pain level 4-6 Loperamide HCl 4 mg 03/04/18 21:10 Imodium - PO Q6H PRN DIARRHEA Magnesium Citrate 300 ml 03/04/18 21:10 Citroma - PO Q48H PRN CONSTIPATION Magnesium Hydroxide 30 ml 03/04/18 21:10 Milk Of Magnesia - PO DAILY PRN CONSTIPATION Melatonin 5 mg 03/04/18 22:00 03/24/18 21:27 Melatonin PO 5 mg HS PRN Administration INSOMNIA Nicotine 14 mg 03/05/18 10:00 03/24/18 09:50 Nicoderm Patch - TD 14 mg DAILY MANNIE Administration Nicotine Polacrilex 2 mg 03/04/18 21:10 03/24/18 09:51 Nicorette Gum - BC 2 mg Q2H PRN Administration NICOTINE REPLACEMENT RX Multivit/Folic Acid/Iron 1 tab 03/05/18 10:00 03/24/18 09:50 Vitamins (Sjr) - PO 1 tab DAILY MANNIE Administration Pseudoephedrine/Triprolidine 1 combo 03/04/18 21:10 Actifed - PO TID PRN NASAL CONGESTION Thiamine HCl 100 mg 03/04/18 22:00 03/24/18 21:27 Vitamin B1 - PO 100 mg HS MANNIE Administration Trazodone HCl 150 mg 03/09/18 22:00 03/24/18 21:27 Desyrel - PO 150 mg HS MANNIE Administration Venlafaxine HCl 150 mg 03/05/18 10:00 03/24/18 09:50 Effexor Xr - PO 150 mg DAILY MANNIE Administration Current Side Effect: No Lab tests ordered: No Lab tests reviewed: Yes Provider note:: Patient completed this program today.She has met her reatment goals and will continue to address her issues on outpatient basis at [facility].Patient reports findng that current medications help to cope with depression,mood instability ,anxiety and sleeping difficulties.Scripts for 30 days supply provided. Therapy provided focusing on relapse prevention.Support system,coping skills utilization has been discussed with the patient. She is stable for discharge today. Total face to face time:: 30 Mental Status Exam - Mental Status Exam Alert and Oriented to: Time, Place, Person Cognitive Function: Grossly Intact Patient Appearance: Well Groomed Mood: Hopeful, Euthymic Affect: Appropriate, Mood Congruent, Normal Range Patient Behavior: Cooperative Speech Pattern: Clear Voice Loudness: Normal Thought Process: Goal Oriented Thought Disorder: Not Present Hallucinations: Denies Suicidal Ideation: Denies Homicidal Ideation: Denies Insight/Judgement: Fair Sleep: Fair Appetite: Good Muscle strength/Tone: Normal Gait/Station: Normal Psychiatric Treatment Plan - Problem List (1) Nicotine dependence Current Visit: Yes Qualifiers: Nicotine product type: cigarettes Substance use status: uncomplicated Qualified Code(s): F17.210 - Nicotine dependence, cigarettes, uncomplicated (2) Drug-induced mood disorder Current Visit: Yes (3) Alcohol dependence Current Visit: Yes
[2018-03-25] MEDS: NICOTINE 14 MG/24 HOURS TOPICAL PATCH TD SCH (09:50)
[2018-03-25] MEDS: VENLAFAXINE HCL 150 MG E.R. CAPSULE PO SCH (09:50)
[2018-03-25] MEDS: PRENATAL VITAMINS W/ FOLIC ACID TABLET (FP) PO SCH (09:50)
[2018-03-25] MEDS: busPIRone HCL 10 MG TABLET (FP) PO SCH (09:50)
[2018-03-25] MEDS: hydrOXYzine PAMOATE 50 MG CAPSULE (FP) PO PRN (09:52)
== END 2018-03-25 09:55 | disposition home or self-care (01) | DRG 772 ==
LOC: YASAS 17:48 → Y3E 21:30
PROVIDERS: ADMIT Psychiatry & Neurology Psychiatry; ATTEND Psychiatry & Neurology Psychiatry
PROC: HZ42ZZZ Group Counseling for Substance Abuse Treatment, Cognitive-Behavioral (ICD-10-PCS; principal; 2018-03-04)
DX: F10.20 Alcohol dependence, uncomplicated (principal); F17.210 Nicotine dependence, cigarettes, uncomplicated; F10.24 Alcohol dependence with alcohol-induced mood disorder; F19.24 Other psychoactive substance dependence with psychoactive substance-induced mood disorder; F41.8 Other specified anxiety disorders; Z86.69 Personal history of other diseases of the nervous system and sense organs; Z91.5 Personal history of self-harm
CPT/HCPCS: 36415; 80053; 81003; 82962; 85025; 85027; 86593; 93005; 93010